=== PATIENT | male | born 1955 | race Caucasian/White ===

== ENCOUNTER → 2024-02-14 13:15 | Outpatient (REF) | payer OTHER, SELFPAY | LOC: HWRAD 13:15 | PROVIDERS: ATTENDING PHYSICIAN Internal Medicine Critical Care Medicine; FAMILY PHYSICIAN Family Medicine | DX: R91.8 Other nonspecific abnormal finding of lung field (principal) | CPT/HCPCS: 71250 ==

== ENCOUNTER → 2024-06-01 10:49 | Outpatient (REF) | payer OTHER, SELFPAY | LOC: RAD 10:49 | PROVIDERS: ATTENDING PHYSICIAN Nurse Practitioner Family; FAMILY PHYSICIAN Family Medicine | DX: D75.9 Disease of blood and blood-forming organs, unspecified (principal); R60.0 Localized edema; Z86.718 Personal history of other venous thrombosis and embolism; Z79.01 Long term (current) use of anticoagulants | CPT/HCPCS: 93971 ==

== ENCOUNTER → 2024-06-18 10:11 | Outpatient (REF) | payer OTHER, SELFPAY | LOC: RAD 10:11 | PROVIDERS: ATTENDING PHYSICIAN Nurse Practitioner Acute Care; FAMILY PHYSICIAN Internal Medicine Hematology & Oncology; OTHER PHYSICIAN Surgery Vascular Surgery; REFERRING PHYSICIAN Student in an Organized Health Care Education/Training Program | DX: M79.651 Pain in right thigh (principal); M79.652 Pain in left thigh | CPT/HCPCS: 93922; 93925; 93978 ==

== ENCOUNTER → 2024-07-10 12:51 | Outpatient (REF) | payer OTHER, SELFPAY | LOC: RAD 12:51 | PROVIDERS: ATTENDING PHYSICIAN Surgery Vascular Surgery; FAMILY PHYSICIAN Nurse Practitioner Acute Care | DX: I73.9 Peripheral vascular disease, unspecified (principal) | CPT/HCPCS: 75635; Q9967 ==

== ENCOUNTER 2024-08-17 11:39 | Day surgery (SDC) | payer OTHER, SELFPAY ==
[2024-08-12 10:03] VITALS: BMI 27.9
[2024-08-12 11:06] LABS: % Basophils 0.3 % (0-2); % Eosinophils 1.1 % (0-6); % Immature Granulocytes 0.3 % (0-0.5); % Lymphocytes 39.7 % (20.5-51.1); % Monocytes 16.6 % (1.7-9.3); Absolute Lymphocytes 1.4 10^3/uL (1.2-3.4); Absolute Monocytes 0.6 10^3/uL (0.1-0.6); Absolute Neutrophils 1.5 10^3/uL (1.4-6.5); Hematocrit 38.8 % (39.0-52.0); Hemoglobin 14.3 g/dL (13.0-18.0); Mean Corp Hgb Conc. 36.9 g/dL (33.0-37.0); Mean Corpuscular Hgb 47.4 pg (27.0-31.0); Mean Corpuscular Volume 128.5 fL (80.0-94.0); Mean Platelet Volume 9.5 fL (7.4-10.4); Nucleated Red Blood Cells % 0 % (-); Platelet Count 310 10^3/uL (130-400); Red Blood Cell Count 3.02 10^6/uL (4.70-6.10); Red Cell Dist. Width 12.8 % (11.5-14.5); White Blood Cell Count 3.6 10^3/uL (4.8-10.8)
[2024-08-12 11:17] LABS: PT 16.3 Sec (11.4-14.6)
[2024-08-12 11:18] LABS: APTT 32.8 Sec (23.4-35.0)
[2024-08-12 11:36] LABS: Blood Urea Nitrogen 21 mg/dl (9-20); Calcium 9.4 mg/dl (8.4-10.2); Carbon Dioxide 27 mmol/L (22-30); Chloride 103 mmol/L (98-107); Estimated Creatinine Clearance 61 ml/min; Glucose 96 mg/dl (70-99); Potassium 4.4 mmol/L (3.5-5.1); Sodium 142 mmol/L (135-145); eGFR > 60.00
[2024-08-17] VITALS (18 sets, daily range): BP systolic 113–163; BP diastolic 60–93
[2024-08-17] MEDS: NSS 500 IV (12:30)
--- NOTE | 2024-08-17 12:30 | W.SUR.PREOP ---
Pre-Operative Surgical Note
-
I have examined this patient prior to the performance of the scheduled procedure.
The patient's condition is unchanged from the time of the current History and
Physical and the patient is able to undergo the scheduled procedure.
--- NOTE | 2024-08-17 14:39 | W.SUR.POST ---
Surgical Immediate Post Op
Note
Pre Op Diagnosis: PAD
Post Op Diagnosis: PAD
Procedure Performed: Pelvic angiogram, kissing common iliac artery IVL, kissing common iliac artery stents with GORE VBX
Primary Surgeon: Merrick
Anesthesia: local and sedation
Estimated Blood Loss: <2cc
Fluids: see anesthesia flow sheet
Drains/Shunts: none
Specimens/Cultures: none
Doppler/Duplex/Angio (Y/N): Y
Complications: none
Operative Findings: Successful stent placement
[2024-08-17] MEDS: DILAUDID 0.5 MG IV (15:00)
[2024-08-17] MEDS: DILAUDID 0.25 MG IV (15:46)
[2024-08-17] MEDS: LOW STRENGTH ASPIRIN 81 MG PO (16:54)
--- NOTE | 2024-08-17 16:55 | OR.RPT ---
Operative Report
Operative Report
PROCEDURE DATE: 08/17/2024
Preoperative diagnosis: Severe debilitating bilateral lower extremity claudication. 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
Postoperative diagnosis: Same
Procedure:
1. Duplex assisted bilateral common femoral artery cannulation.
2. Aortogram and pelvic angiogram.
3. Intravascular lithotripsy (IVL) kissing balloon angioplasty of bilateral common iliac arteries with Shockwave IVL balloon catheters.
4. Placement of kissing bilateral common iliac artery stents with Lena VBX 9 mm x 39 mm covered stents. Post angioplasty with 10 mm angioplasty balloons.
5. Percutaneous Perclose suture closure bilateral common femoral arteries.
Surgeon: Sin
Retail Shift Supervisor: None
Complications: None
Anesthesia: Local, sedation
Fluoroscopy:
8.9 min
100 mGy
24.55 Gy.cm2
Indications for procedure:
Debilitating bilateral lower extremity claudication with aortic bifurcation severe bilateral plaque stenosis. Discussed with patient attempted angioplasty/stenting with kissing angioplasty/stents. Discussed use of intravascular lithotripsy balloon
angioplasty for plaque modification due to severe bulky plaque nature of bilateral proximal common iliac artery and distal aortic stenoses.
Description of procedure:
Patient was identified, brought to the operating room. Placed on the table in the supine position. After the adequate administration of anesthesia, the patient was prepped and draped in the standard surgical fashion. A standard preoperative
timeout was undertaken and everybody was in agreement with the plan.
The bilateral common femoral arteries or accessed with a micropuncture kit under direct duplex ultrasound guidance. 5 [place] sheaths were then advanced over 0.035 inch wires. Bilateral 0.035 inch wires were getting held up in the common iliac
artery due to the severe plaque. Therefore I sequentially used a glide catheter and a Glidewire to gain wire access into the aorta and then advanced the catheter and exchanged for a Storq wire. This was done sequentially on 1 side and then the
other. Now I exchanged over the right sided Storq wire for a whaley's the catheter. Aortography/pelvic angiogram was performed.
I confirmed the severe plaque stenosis at the very distal aortic bifurcation spilling into bilateral common iliac arteries. I now exchanged back for 0.035 inch Storq wires. (1 from each groin into the aorta). I then exchanged for 7 [place]ic sheaths
bilaterally. Next, I exchanged my Storq wires for 0.018 inch V18 wires. Over these wires I then passed Shockwave IVL 10 mm balloons and performed repeated low inflations at 2 chanell and running the intravascular lithotripsy followed by a second run
at 2 chanell, followed by angioplasty to 4 chanell. This was done in the standard fashion, repositioning the balloon catheters in between sets of inflations. Note, this was performed due to the severe plaque disease at the aortic bifurcation to help
prepped the vessel for stenting, and to achieve plaque modification. Once I completed kissing balloon angioplasty with the intravascular lithotripsy balloons, I exchanged back for 0.035 inch wires into the abdominal aorta from bilateral sheath
access. I then positioned 9 mm x 39 mm Lena VBX covered stents in a kissing fashion just into the aorta. Completion angiogram now demonstrated an excellent result with no residual stenosis. Good flow through both stents. However in order to make
sure the stents oppose the wall properly, I then performed kissing balloon angioplasty with 10 mm angioplasty balloons. Completion angiography now demonstrated excellent result. Patient also had strong palpable bilateral femoral pulses. Therefore
at this point bilateral femoral angiography demonstrated good puncture in the bilateral common femoral arteries. I therefore used Perclose percutaneous sutures sequentially in the right groin and then the left groin as the sheaths were withdrawn.
Gentle manual pressure was also applied to both groins. Full hemostasis was achieved. The patient tolerated procedure well. He had 1+ palpable PT pulses upon completion bilaterally.
== END 2024-08-17 19:34 | disposition home or self-care (01) ==
LOC: CATH 11:39
PROVIDERS: ATTENDING PHYSICIAN Surgery Vascular Surgery; FAMILY PHYSICIAN Family Medicine; OTHER PHYSICIAN Internal Medicine Cardiovascular Disease
DX: I70.213 Atherosclerosis of native arteries of extremities with intermittent claudication, bilateral legs (principal); Z87.891 Personal history of nicotine dependence; Z86.711 Personal history of pulmonary embolism; I10 Essential (primary) hypertension; Z79.01 Long term (current) use of anticoagulants; Z79.899 Other long term (current) drug therapy
CPT/HCPCS: C9765; 36415; 80048; 85025; 85610; 85730; 86850; 86900; 86901; 93005; C1725; C1760; C1769; C1874; C1894; Q9967

== ENCOUNTER → 2024-09-18 08:11 | Outpatient (REF) | payer OTHER, SELFPAY | LOC: RAD 08:11 | PROVIDERS: ATTENDING PHYSICIAN Surgery Vascular Surgery; FAMILY PHYSICIAN Nurse Practitioner Acute Care | DX: I73.9 Peripheral vascular disease, unspecified (principal) | CPT/HCPCS: 93922; 93925; 93978 ==

== ENCOUNTER → 2025-01-22 14:43 | Outpatient (REF) | payer OTHER, SELFPAY | LOC: RAD 14:43 | PROVIDERS: ATTENDING PHYSICIAN Family Medicine | DX: Z00.00 Encounter for general adult medical examination without abnormal findings (principal); M25.571 Pain in right ankle and joints of right foot; M25.511 Pain in right shoulder; M25.531 Pain in right wrist; M25.532 Pain in left wrist; M79.641 Pain in right hand; M79.642 Pain in left hand | CPT/HCPCS: 73030; 73110; 73130; 73610 ==

== ENCOUNTER → 2025-03-31 09:59 | Outpatient (REF) | payer OTHER, SELFPAY | LOC: RAD 09:59 | PROVIDERS: ATTENDING PHYSICIAN Registered Nurse; FAMILY PHYSICIAN Family Medicine | DX: I73.9 Peripheral vascular disease, unspecified (principal) | CPT/HCPCS: 93922; 93925; 93978 ==

== ENCOUNTER → 2025-10-21 08:40 | Outpatient (REF) | payer OTHER, SELFPAY | LOC: RAD 08:40 | PROVIDERS: ATTENDING PHYSICIAN Registered Nurse; FAMILY PHYSICIAN Family Medicine | DX: I73.9 Peripheral vascular disease, unspecified (principal) | CPT/HCPCS: 93922; 93925; 93978 ==